=== PATIENT | male | born 1980 | race American Indian/Alaskan Native ===

== ENCOUNTER 2020-08-20 09:50 | Outpatient (CLI) | payer OTHER ==
--- NOTE | 2020-08-23 08:30 | Magnetic Resonance Report ---
MRI LUMBAR SPINE INDICATION / CLINICAL INFORMATION: BACK PAIN. COMPARISON: None available. FINDINGS: GENERAL OBSERVATIONS: Unenhanced MR images of the lumbar spine were obtained. This exam was completed in PACS on 08/23/2020 at 0619 hours. There is no evidence of acute abnormality. Vertebral body height and alignment is well preserved and unremarkable. [id number] ANALYSIS: L5-S1: Unremarkable. L4-5: Unremarkable. L3-4: Unremarkable. L2-3: Unremarkable. L1-2: Unremarkable. BONE MARROW: No significant abnormality. SPINAL CORD/CAUDA EQUINA: Normal. PARASPINAL SOFT TISSUES: No significant abnormality. IMPRESSION: Negative unenhanced MRI of the lumbar spine. Signer Name: Landon Reeves MD Signed: 08/23/2020 8:25 AM Workstation Name: [id number]
== END 2020-08-20 09:51 | disposition home or self-care (01) ==
LOC: MRI 09:50
PROVIDERS: ATTEND Psychiatry & Neurology Psychiatry
DX: M54.5 Low back pain (principal)
CPT/HCPCS: 72148